=== PATIENT | female | born 1980 | race Caucasian/White ===

== ENCOUNTER 2017-01-30 12:17 | Emergency (ER) | payer SELFPAY ==
[2017-01-30 13:01] VITALS: BP 126/71
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
== END 2017-01-30 14:56 | disposition home or self-care (01) ==
LOC: ED 12:17
DX: M62.830 Muscle spasm of back (principal); M54.5 Low back pain
CPT/HCPCS: 99282